=== PATIENT | female | born 1980 | race Hispanic/Latino ===

== ENCOUNTER 2017-05-19 09:45 | Outpatient (CLI) | payer OTHER ==
--- NOTE | 2017-05-19 12:31 | MMO ---
BILATERAL DIAGNOSTIC MAMMOGRAMS: DATE: 05/19/17 CLINICAL HISTORY: Palpable pain in left axilla. Baseline exam. This patient's mammogram was interpreted with the assistance of computer-aided detection. FINDINGS: There is heterogeneously dense breast parenchyma bilaterally, limiting the sensitivity of mammograph y. There is no dominant mass or suspicious clustering of microcalcifications. No evidence of archite ctural distortion. Bilateral axillary lymph nodes are seen. Targeted ultrasound was performed at the left axillary region at the site of the patient's reported pain. This demonstrates a normal sonographic appearance. IMPRESSION: BIRADS 2: Benign Finding(s) Patient will be referred back to her clinician for further clinical management of the focal area of palpable pain at the left axilla. Patient should also continue with annual screening mammography unl ess clinical evaluation warrants more urgent imaging follow-up. Results and recommendations discussed with the patient at the time of diagnostic exam. POS: CJ
--- NOTE | 2017-05-19 12:37 | ULT ---
LEFT AXILLARY ULTRASOUND: Date: 05/19/17 CLINICAL HISTORY: Palpable pain in the left axilla, 37-year-old female. Exam is performed in conjunction with diagnostic mammography. FINDINGS: Localized real-time sonography of the left axilla reveals normal appearing tissue without evidence o f mass, cyst, or other localizable pathology. IMPRESSION: BIRADS 2: Benign Finding(s) Patient will be referred back to her clinician for further clinical management of palpable pain in t he left axilla. Patient should return to screening mammography unless clinical evaluation warrants m ore urgent imaging follow-up. Findings and recommendations were discussed with the patient at the time of diagnostic exam. POS: CJ
== END 2017-05-19 09:46 | disposition home or self-care (01) ==
LOC: MAMMO 09:45
PROVIDERS: ATTEND Nurse Practitioner Acute Care
DX: D72.818 Other decreased white blood cell count (principal)
CPT/HCPCS: 77066; G0204